=== PATIENT | female | born 1945 | race Caucasian/White ===

== ENCOUNTER 2018-08-09 06:14 | Day surgery (SDC) | payer MEDICARE, OTHER ==
[~2018-08-09] VITALS: Ht 157.5 cm; Wt 100.9 kg
[~2018-08-09 06:14] MED LIST: AMLO5 PO; ASPI81CH PO; ATEN50 PO; ATOR20 PO; Benazepril HCl10 MG PO; CHOL10002 PO; DICL25ER PO; Hydrochlorothia25 MG PO; LEVSOD150 PO; LORA.5 PO; MELATIN3 MG PO; METF500C PO; Multiple Vitam1 EAC1 PO; SERT50 PO; TRAM50 PO
== END 2018-08-09 08:30 | disposition home or self-care (01) ==
LOC: ORSCSDS 06:14
PROVIDERS: Orthopaedic Surgery
PROC: 01N50ZZ Release Median Nerve, Open Approach (ICD-10-PCS; principal; 2018-08-09 07:30)
DX: G56.01 Carpal tunnel syndrome, right upper limb (principal); I10 Essential (primary) hypertension; E11.9 Type 2 diabetes mellitus without complications; Z87.891 Personal history of nicotine dependence; E66.01 Morbid (severe) obesity due to excess calories; Z68.41 Body mass index [BMI] 40.0-44.9, adult; Z79.899 Other long term (current) drug therapy
CPT/HCPCS: 82947; J0171; J2250; J3010; J7120

== ENCOUNTER → 2019-09-10 | Outpatient (CLI) | payer MEDICARE, OTHER | END | disposition home or self-care (01) | LOC: LAB SHORT 18:25 → LAB 18:25 → LAB FUT 09-10 11:20 | DX: R30.0 Dysuria (principal); R30.9 Painful micturition, unspecified | CPT/HCPCS: 87077; 87086; 87186 ==

== ENCOUNTER → 2020-05-27 | Outpatient (CLI) | payer MEDICARE, OTHER ==
[2020-05-27 14:31] LABS: Campylobacter Sp Not Detected (NOT DETECT); Plesiomonas Shigelloides Not Detected (NOT DETECT); Salmonella Sp Not Detected (NOT DETECT); Yersinia Enterocolitica Not Detected (NOT DETECT)
[2020-05-27 14:32] LABS: Adenovirus F 40/41 Not Detected (NOT DETECT); Astrovirus Not Detected (NOT DETECT); Cryptosporidium Not Detected (NOT DETECT); Cyclospora Cayetanensis Not Detected (NOT DETECT); E. Coli O157 Not Detected (NOT DETECT); Entamoeba Histolytica Not Detected (NOT DETECT); Enteroaggregative E. coli-EAEC Not Detected (NOT DETECT); Enteropathogenic E. coli-EPEC Not Detected (NOT DETECT); Enterotoxigenic E. coli-ETEC Not Detected (NOT DETECT); Giardia Lamblia Not Detected (NOT DETECT); Norovirus GI/GII Not Detected (NOT DETECT); Rotavirus A Not Detected (NOT DETECT); Sapovirus Not Detected (NOT DETECT); Shiga Toxin-prod E. coli-STEC Not Detected (NOT DETECT); Shigella/Enteroin E. coli-EIEC Not Detected (NOT DETECT); Vibrio Cholerae Not Detected (NOT DETECT); Vibrio Sp Not Detected (NOT DETECT)
== END ==
LOC: LAB UCHC 06:30 → LAB SHORT 06:30
PROVIDERS: Internal Medicine
DX: R19.7 Diarrhea, unspecified (principal)
CPT/HCPCS: 0097U

== ENCOUNTER 2020-12-07 13:43 | Emergency (ER) | payer MEDICARE, OTHER ==
[~2020-12-07] VITALS: Ht 160 cm; Wt 99.8 kg
[2020-12-07] MEDS ORDERED: Ativan0.5 MG PO (14:17)
[2020-12-07 14:34] LABS: BASOPHILS ABSOLUTE AUTO 0.04 K/mm3 (0.00-0.23); BASOPHILS PERCENT AUTO 1 % (0-2); EOSINOPHILS ABSOLUTE AUTO 0.07 K/mm3 (0.00-0.68); EOSINOPHILS PERCENT AUTO 1 % (0-6); Hematocrit 45.9 % (33.0-51.0); Hemoglobin 14.9 g/dL (11.5-16.0); IMMATURE GRAN ABSOLUTE AUTO 0.02 K/mm3 (0.00-0.10); IMMATURE GRAN PERCENT AUTO 0 % (0-1); LYMPHOCYTES ABSOLUTE AUTO 2.46 K/mm3 (0.84-5.20); LYMPHOCYTES PERCENT AUTO 29 % (21-46); MONOCYTES ABSOLUTE AUTO 0.63 K/mm3 (0.16-1.47); MONOCYTES PERCENT AUTO 8 % (4-13); Mean Corpuscular HGB 29.4 pg (26.0-34.0); Mean Corpuscular HGB Conc 32.5 g/dL (31.5-36.5); Mean Corpuscular Volume 91 fL (80-100); NEUTROPHILS ABSOLUTE AUTO 5.21 K/mm3 (1.96-9.15); NEUTROPHILS PERCENT AUTO 62 % (41-73); Platelet Count 219 K/mm3 (150-400); RDW Standard Deviation 42.9 fL (35.1-46.3); Red Blood Cell Count 5.07 M/mm3 (3.80-5.20); White Blood Cell Count 8.43 K/mm3 (4.00-11.30)
[2020-12-07 15:04] LABS: Alanine Aminotransfer (ALT/SGP 26 U/L (12-78); Albumin, Blood 3.7 g/dL (3.4-5.0); Alk Phos 88 U/L (50-136); Anion Gap 8 mmol/L (6-16); Aspartate Aminotrans (AST/SGOT 16 U/L (12-37); Bilirubin, Total 0.7 mg/dL (0.1-1.0); Blood Urea Nitrogen 12 mg/dL (8-24); Bun/Creatinine Ratio 18.7 (12.0-20.0); CO2, Blood 25 mmol/L (21-32); Calcium, Blood 8.9 mg/dL (8.5-10.1); Chloride, Blood 103 mmol/L (98-108); Creatinine, Blood 0.64 mg/dL (0.40-1.00); Globulin, Blood 3.6 g/dL (2.2-4.0); Glomerular Filtration Rate >60 (60-); Glucose, Blood 125 mg/dL (70-99); Potassium, Blood 3.6 mmol/L (3.5-5.5); Sodium, Blood 136 mmol/L (136-145); Total Protein, Blood 7.3 g/dL (6.4-8.2); Troponin I <0.015 ng/mL (0.000-0.040)
[2021-03-03] MEDS ORDERED: ATEN50 PO (11:34)
[2021-03-03] MEDS ORDERED: ATOR20 PO (11:34)
[2021-03-03] MEDS ORDERED: Aspirin EC81 MG PO (11:34)
[2021-03-03] MEDS ORDERED: VITAMIN D325 MC3 PO (11:35)
[2021-03-03] MEDS ORDERED: EUTHYROX175 MCG PO (11:35)
[2021-03-03] MEDS ORDERED: Diclofenac Sodi50 MG PO (11:35)
[2021-03-03] MEDS ORDERED: BENAZEPRIL HCL10 MG PO (11:35)
[2021-03-03] MEDS ORDERED: LORA.5 PO (11:36)
[2021-03-03] MEDS ORDERED: MELA3 PO (11:36)
[2021-03-03] MEDS ORDERED: NASONEX17 G1 (11:36)
[2021-03-03] MEDS ORDERED: MULTIPLE VITAM1 EACH PO (11:37)
[2021-03-03] MEDS ORDERED: TRAM50 PO (11:37)
[2021-03-03] MEDS ORDERED: TURMERIC500 M2 PO (11:37)
[2021-03-03] MEDS ORDERED: SERT50 PO (11:37)
== END 2020-12-07 17:02 | disposition home or self-care (01) ==
LOC: ER 13:43
PROVIDERS: Emergency Medicine
DX: R00.2 Palpitations (principal); R11.0 Nausea; Z79.899 Other long term (current) drug therapy
CPT/HCPCS: 36415; 71045; 80053; 84484; 85025; 93005; 93010; 99285-25; A9270

== ENCOUNTER 2021-03-11 06:55 | Day surgery (SDC) | payer MEDICARE, OTHER ==
[~2021-03-11] VITALS: Ht 160 cm; Wt 96.0 kg
[~2021-03-11 06:55] MED LIST changes: +Aspirin EC81 MG PO; +Ativan0.5 MG PO; +BENAZEPRIL HCL10 MG PO; +Diclofenac Sodi50 MG PO; +EUTHYROX175 MCG PO; +MELA3 PO; +MULTIPLE VITAM1 EACH PO; +NASONEX17 G1; +TURMERIC500 M2 PO; +VITAMIN D325 MC3 PO
== END 2021-03-11 09:15 | disposition home or self-care (01) ==
LOC: ORSCSDS 06:55
PROVIDERS: Internal Medicine Gastroenterology
PROC: 0DBL8ZX Excision of Transverse Colon, Via Natural or Artificial Opening Endoscopic, Diagnostic (ICD-10-PCS; principal; 2021-03-11 08:15)
DX: R19.5 Other fecal abnormalities (principal); Z86.010 Personal history of colon polyps; D12.3 Benign neoplasm of transverse colon; Z87.891 Personal history of nicotine dependence; Z79.82 Long term (current) use of aspirin; Z79.899 Other long term (current) drug therapy; K64.4 Residual hemorrhoidal skin tags; K57.30 Diverticulosis of large intestine without perforation or abscess without bleeding
CPT/HCPCS: 82947; 88305; J2704; J7120

== ENCOUNTER 2021-08-10 11:04 | Day surgery (SDC) | payer MEDICARE, OTHER ==
[~2021-08-10] VITALS: Ht 160 cm; Wt 99.0 kg
[~2021-08-10 11:04] MED LIST changes: +HYDCHL25 PO
--- NOTE | 2021-08-10 12:28 | NUR ---
Ambulatory in Day Surgery History, Chart, Medications and Allergies reviewed before start of procedure.Lungs clear T/O to Auscultation. Patient confirms NPO status and agrees with scheduled surgery.
--- NOTE | 2021-08-10 13:09 | NUR ---
08/10/21 1309 Anayeli Norris History, Chart, Medications and Allergies reviewed before start of procedure. Patient confirms NPO status and agrees with scheduled surgery. 3-LEAD EKG REVIEWED WITH PHYSICIAN PRIOR TO START OF PROCEDURE. MONITOR INTACT WITH CONTINUOUS PULSE OXIMETRY AND INTERMITTENT BP. PATIENT DETERMINED TO BE ASA APPROPRIATE FOR PROPOFOL SEDATION PRIOR TO START OF PROCEDURE BY DR. RATLIFF
--- NOTE | 2021-08-10 13:37 | NUR ---
Patient up to Ambulate independently. Gait steady. History, Chart, Medications and Allergies reviewed before start of procedure.Lungs clear T/O to Auscultation. Patient States Post-Procedure ride home has been arranged. Discharged via wheelchair to private car for ride home. ALL BELONINGS RETURNED TO PATIENT.
== END 2021-08-10 23:01 | disposition home or self-care (01) ==
LOC: ORSCMMR 11:04 → ORD 12:45 → ORSCMMR 12:45
PROVIDERS: Internal Medicine Gastroenterology
PROC: 0DB68ZX Excision of Stomach, Via Natural or Artificial Opening Endoscopic, Diagnostic (ICD-10-PCS; principal; 2021-08-10 12:45)
DX: D50.9 Iron deficiency anemia, unspecified (principal); K29.70 Gastritis, unspecified, without bleeding; K44.9 Diaphragmatic hernia without obstruction or gangrene; Z79.82 Long term (current) use of aspirin; Z79.899 Other long term (current) drug therapy
CPT/HCPCS: 88305; 88341; 88342; J2704; J7120

== ENCOUNTER → 2022-01-04 | Outpatient (CLI) | payer MEDICARE, OTHER ==
[2022-01-04 22:23] LABS: Alanine Aminotransfer (ALT/SGP 24 U/L (12-78); Albumin, Blood 3.9 g/dL (3.4-5.0); Albumin/Globulin Ratio 1.4 (0.8-1.8); Alk Phos 101 U/L (50-136); Anion Gap 4 mmol/L (6-16); Aspartate Aminotrans (AST/SGOT 17 U/L (12-37); Bilirubin, Total 0.7 mg/dL (0.1-1.0); Blood Urea Nitrogen 10 mg/dL (8-24); Bun/Creatinine Ratio 15.9 (12.0-20.0); CO2, Blood 27 mmol/L (21-32); Calcium, Blood 9.1 mg/dL (8.5-10.1); Chloride, Blood 106 mmol/L (98-108); Creatinine, Blood 0.63 mg/dL (0.40-1.00); Globulin, Blood 2.8 g/dL (2.2-4.0); Glomerular Filtration Rate >60 (60-); Glucose, Blood 119 mg/dL (70-99); Potassium, Blood 3.9 mmol/L (3.5-5.5); Sodium, Blood 137 mmol/L (136-145); Total Protein, Blood 6.7 g/dL (6.4-8.2)
== END | disposition home or self-care (01) ==
LOC: LAB SHORT 12:53
PROVIDERS: Internal Medicine
DX: I10 Essential (primary) hypertension (principal); E03.9 Hypothyroidism, unspecified; R73.03 Prediabetes
CPT/HCPCS: 80053; 83036; 84443

== ENCOUNTER 2022-06-01 10:56 | Day surgery (SDC) | payer MEDICARE, OTHER ==
[~2022-06-01] VITALS: Ht 160 cm; Wt 88.3 kg
[~2022-06-01 10:56] MED LIST changes: -NASONEX17 G1; +[UNRECOGNIZED DRUG - OTHER]
[2022-06-01] MEDS ORDERED: DICL75ER (11:48)
--- NOTE | 2022-06-01 12:04 | NUR ---
History, Chart, Medications and Allergies reviewed before start of procedure. Lungs clear T/O to Auscultation. PT TO UNIT VIA W/C. ABLE TO STAND AND GET WEIGHT. FAMILY TO BEDSIDE.
--- NOTE | 2022-06-01 18:02 | NUR ---
PATIENT ARRIVED TO UNIT VIA BED. VSS ON RA. PATIENT HAS FULL SENSATION TO BLE, WIGGLES ALL TOES, MOVES LEGS VERY WELL. GAUZE AND MANDI WRAP TO LEFT KNEE, POLAR PACK IN PLACE. LUNGS CLEAR. DENIES PAIN AT THIS TIME. TOLERATING WATER AND JELLO AT THIS TIME. ORIENTED TO ROOM AND CALL LIGHT.
[2022-06-02 03:58] LABS: BASOPHILS ABSOLUTE AUTO 0.01 K/mm3 (0.00-0.23); BASOPHILS PERCENT AUTO 0 % (0-2); EOSINOPHILS PERCENT AUTO 0 % (0-6); Hemoglobin 12.6 g/dL (11.5-16.0); IMMATURE GRAN ABSOLUTE AUTO 0.04 K/mm3 (0.00-0.10); IMMATURE GRAN PERCENT AUTO 0 % (0-1); LYMPHOCYTES ABSOLUTE AUTO 1.19 K/mm3 (0.84-5.20); LYMPHOCYTES PERCENT AUTO 9 % (21-46); MONOCYTES ABSOLUTE AUTO 1.21 K/mm3 (0.16-1.47); MONOCYTES PERCENT AUTO 9 % (4-13); Mean Corpuscular HGB Conc 32.3 g/dL (31.5-36.5); Mean Corpuscular Volume 90 fL (80-100); Mean Platelet Volume 8.8 fL (9.1-12.4); NEUTROPHILS ABSOLUTE AUTO 10.79 K/mm3 (1.96-9.15); NEUTROPHILS PERCENT AUTO 82 % (41-73); Platelet Count 233 K/mm3 (150-400); RDW Coefficient Variation 12.7 % (11.7-14.2); Red Blood Cell Count 4.34 M/mm3 (3.80-5.20); White Blood Cell Count 13.24 K/mm3 (4.00-11.30)
[2022-06-02 04:24] LABS: Bun/Creatinine Ratio 17.7 (12.0-20.0); Calcium, Blood 8.5 mg/dL (8.5-10.1); Creatinine, Blood 0.51 mg/dL (0.40-1.00); Magnesium, Blood 1.8 mg/dL (1.6-2.4); Potassium, Blood 3.5 mmol/L (3.5-5.5)
--- NOTE | 2022-06-02 04:46 | NUR ---
SHIFT SUMMARY PT A&OX4, PLESANT AND COOPERATIVE. TOLERAING PO INTAKE WITHOUT ANY N/V. PT BECAME MORE PAINFUL SPINAL WORE OFF, MEDICATED PER EMAR. AMBULATING TO BATHROOM WITH SBA AND FWW, VOIDING WELL. DRESSING C/D/I. CALL LIGHT WITHIN REACH.
--- NOTE | 2022-06-02 12:56 | NUR ---
DISCHARGE SUMMARY PT A&OX4, VSS/RA, ROMA PO, VOIDING, AMB SBA FWW, PAIN TREATED WITH OXY 5 MG PRN, UP TO CHAIR, IV DC'D. DC INS PROVIDED. PT REP UNDERSTANDING THOSE INSTRUCTIONS INCLUDING DRESSING CHANGES, SHORT FREQ AMB W/FWW AT ALL TIMES, WITH REST PERIODS POLAR JEFFREY/ELEVATED, MEL HOSE, ASA BID, BACTRIM BID, OK TO SHOWER, PAIN MANAGEMENT EDU. LEFT FLOOR VIA WC WITH FILTER TENDER, TO GO HOME WITH AND SON/ADVERTISING OPERATIONS MANAGER, WITH ALL PERSONAL POSSESSIONS/DC PACKET/POLAR JEFFREY/ AQUACEL DRESSINGS 2 MEDIUM AND 2 SMALL. AQUACEL APPLIED BY SURGEON THIS AM CDI.
== END 2022-06-02 12:27 | disposition home or self-care (01) ==
LOC: ORSCMMR 10:56 → ORD 14:00 → SURS 17:56 → ORSCMMR 06-02 12:27
PROVIDERS: Orthopaedic Surgery
PROC: 0SRD0J9 Replacement of Left Knee Joint with Synthetic Substitute, Cemented, Open Approach (ICD-10-PCS; principal; 2022-06-01 14:00)
PROC: 8E0YXBZ Computer Assisted Procedure of Lower Extremity (ICD-10-PCS; principal; 2022-06-01 14:00)
DX: M17.0 Bilateral primary osteoarthritis of knee (principal); E11.9 Type 2 diabetes mellitus without complications; E66.9 Obesity, unspecified; Z68.36 Body mass index [BMI] 36.0-36.9, adult; I10 Essential (primary) hypertension; F41.8 Other specified anxiety disorders; M35.3 Polymyalgia rheumatica; Z79.82 Long term (current) use of aspirin; Z79.899 Other long term (current) drug therapy
CPT/HCPCS: 36415; 73560-LT; 80048; 82947; 83735; 85025; 97110; 97116; 97161; 97530; A9270; C1713; C1776; J0171; J0690; J0735; J1100; J1170; J1885; J2250; J2370; J2405; J2704; J2795; J3010; J7120

== ENCOUNTER 2022-10-26 10:37 | Day surgery (SDC) | payer MEDICARE, OTHER ==
[~2022-10-26] VITALS: Ht 160 cm; Wt 87.9 kg
[~2022-10-26 10:37] MED LIST changes: +DICL75ER PO
--- NOTE | 2022-10-26 15:05 | NUR ---
10/26/22 1505 Gissel Mejia PATIENT RECEIVED VANCO 1GM PRIOR TO ARRIVING IN THE OR.
--- NOTE | 2022-10-26 18:15 | NUR ---
PATIENT ARRIVED TO ROOM IN BED. MANDI WRAP & POLAR PACK TO RIGHT KNEE, C/D/I. VSS ON ROOM AIR. LUNGS CLEAR. HAD SPINAL ANESTHESIA, NO SENSATION TO BLE AT THIS TIME. PATIENT ALERT, SIPPING ON WATER AT THIS TIME. DENIES N/V. DENIES PAIN. ORIENTED TO ROOM & CALL LIGHT, IN REACH. WILL REPORT TO ONCOMING RN AT 1900.
[2022-10-27 03:48] LABS: BASOPHILS ABSOLUTE AUTO 0.01 K/mm3 (0.00-0.23); BASOPHILS PERCENT AUTO 0 % (0-2); EOSINOPHILS PERCENT AUTO 0 % (0-6); Hematocrit 38.2 % (33.0-51.0); Hemoglobin 12.7 g/dL (11.5-16.0); IMMATURE GRAN ABSOLUTE AUTO 0.05 K/mm3 (0.00-0.10); IMMATURE GRAN PERCENT AUTO 0 % (0-1); LYMPHOCYTES ABSOLUTE AUTO 1.19 K/mm3 (0.84-5.20); LYMPHOCYTES PERCENT AUTO 9 % (21-46); MONOCYTES ABSOLUTE AUTO 1.04 K/mm3 (0.16-1.47); MONOCYTES PERCENT AUTO 8 % (4-13); Mean Corpuscular HGB 29.5 pg (26.0-34.0); Mean Corpuscular HGB Conc 33.2 g/dL (31.5-36.5); Mean Corpuscular Volume 89 fL (80-100); Mean Platelet Volume 8.9 fL (9.1-12.4); NEUTROPHILS ABSOLUTE AUTO 10.46 K/mm3 (1.96-9.15); NEUTROPHILS PERCENT AUTO 82 % (41-73); Platelet Count 217 K/mm3 (150-400); RDW Coefficient Variation 13.2 % (11.7-14.2); RDW Standard Deviation 43.1 fL (35.1-46.3); White Blood Cell Count 12.75 K/mm3 (4.00-11.30)
--- NOTE | 2022-10-27 04:19 | NUR ---
POD1 RIGHT TKA. SENSATION AND CIRCULATION REMAIN INTACT IN RLE. DRESSING REMAINS C/D/I. VSS. PT DID NOT SLEEP MUCH LAST NIGHT. AMBULATED TO THE BATHROOM MULTIPLE TIMES TO VOID. TOLLERATED PO INTAKE W/O N/V. PLAN FOR PT TO WORK WITH PT BEFORE D/C HOME TODAY. THE PATIENT IS CURRENTLY RESTING IN BED, IN NO DISTRESS, CALL LIGHT IN REACH.
[2022-10-27 04:27] LABS: Bun/Creatinine Ratio 21.4 (12.0-20.0); Calcium, Blood 8.3 mg/dL (8.5-10.1); Creatinine, Blood 0.56 mg/dL (0.40-1.00); Potassium, Blood 3.7 mmol/L (3.5-5.5)
--- NOTE | 2022-10-27 09:30 | NUR ---
DISCHARGE PATIENT CLEARED THERAPY WELL. AQUACEL TO RIGHT KNEE, C/D/I. PAIN MANAGED WELL PER EMAR. EATING, DRINKING, & VOIDING WELL. DISCUSSED DISCHARGE INSTRUCTIONS AND INCISION CARE. SENT INSTRUCTIONS, DRESSINGS, & POLAR PACK WITH PATIENT. AWAITING RIDE.
[2022-10-27] MEDS ORDERED: OXYC5 PO (09:57)
[2022-10-27] MEDS ORDERED: PROM25 PO (09:58)
[2022-10-27] MEDS ORDERED: SULTRIDS PO (09:58)
--- NOTE | 2022-10-27 11:45 | NUR ---
ESCORTED OUT VIA W/C. BELONGINGS AND DC INSTRUCTIONS SENT OUT WITH FAMILY MEMBER.
== END 2022-10-27 11:37 | disposition home or self-care (01) ==
LOC: ORSCMMR 10:37 → ORD 14:00 → ORSCMMR 14:00 → SURS 18:06 → ORSCMMR 10-27 11:37
PROVIDERS: Orthopaedic Surgery
PROC: 0SRC0J9 Replacement of Right Knee Joint with Synthetic Substitute, Cemented, Open Approach (ICD-10-PCS; principal; 2022-10-26 14:00)
DX: M17.11 Unilateral primary osteoarthritis, right knee (principal); I10 Essential (primary) hypertension; E03.9 Hypothyroidism, unspecified; E78.00 Pure hypercholesterolemia, unspecified; Z79.899 Other long term (current) drug therapy; Z79.82 Long term (current) use of aspirin; E66.9 Obesity, unspecified; Z68.34 Body mass index [BMI] 34.0-34.9, adult
CPT/HCPCS: 36415; 73560-RT; 80048; 83735; 85025; 97110; 97116; 97161; 97530; A9270; C1713; C1776; J0171; J0690; J0735; J1100; J1885; J2250; J2405; J2704; J2795; J3010; J3370; J7120

== ENCOUNTER → 2024-07-31 | Outpatient (CLI) | payer MEDICARE, OTHER ==
[~2024-07-31] MED LIST changes: +OXYC5 PO; +PROM25 PO; +SULTRIDS PO
[2024-07-31 20:18] LABS: Free Thyroxine 1.14 ng/dL (0.70-1.60)
[2024-07-31 20:20] LABS: Thyroid Stimulating Hormone 2.25 uIU/mL (0.360-4.800)
== END | disposition home or self-care (01) ==
LOC: LAB SHORT 17:46 → LAB 17:46
PROVIDERS: Internal Medicine
DX: E03.9 Hypothyroidism, unspecified (principal)
CPT/HCPCS: 84439; 84443

== ENCOUNTER → 2025-01-27 | Outpatient (CLI) | payer MEDICARE, OTHER ==
[2025-01-27 15:06] LABS: BASOPHILS ABSOLUTE AUTO 0.03 K/mm3 (0.00-0.23); BASOPHILS PERCENT AUTO 1 % (0-2); EOSINOPHILS ABSOLUTE AUTO 0.08 K/mm3 (0.00-0.68); EOSINOPHILS PERCENT AUTO 1 % (0-6); Hematocrit 47.7 % (33.0-51.0); Hemoglobin 15.3 g/dL (11.5-16.0); IMMATURE GRAN ABSOLUTE AUTO 0.02 K/mm3 (0.00-0.10); IMMATURE GRAN PERCENT AUTO 0 % (0-1); LYMPHOCYTES PERCENT AUTO 23 % (21-46); MONOCYTES PERCENT AUTO 8 % (4-13); Mean Corpuscular HGB 29.2 pg (26.0-34.0); Mean Corpuscular HGB Conc 32.1 g/dL (31.5-36.5); Mean Corpuscular Volume 91 fL (80-100); Mean Platelet Volume 9.3 fL (9.1-12.4); NEUTROPHILS ABSOLUTE AUTO 4.44 K/mm3 (1.96-9.15); NEUTROPHILS PERCENT AUTO 68 % (41-73); Platelet Count 227 K/mm3 (150-400); RDW Coefficient Variation 12.7 % (11.7-14.2); RDW Standard Deviation 42.2 fL (35.1-46.3); Red Blood Cell Count 5.24 M/mm3 (3.80-5.20); White Blood Cell Count 6.57 K/mm3 (4.00-11.30)
[2025-01-27 15:25] LABS: Alanine Aminotransfer (ALT/SGP 33 U/L (12-78); Albumin, Blood 3.8 g/dL (3.4-5.0); Albumin/Globulin Ratio 1.2 (0.8-1.8); Alk Phos 105 U/L (50-136); Anion Gap 10 mmol/L (3-11); Aspartate Aminotrans (AST/SGOT 29 U/L (12-37); Bilirubin, Total 0.8 mg/dL (0.1-1.0); Blood Urea Nitrogen 10 mg/dL (8-24); Bun/Creatinine Ratio 18.3 (12.0-20.0); CO2, Blood 27 mmol/L (21-32); Calcium, Blood 8.7 mg/dL (8.5-10.1); Chloride, Blood 102 mmol/L (98-108); Cholesterol 180 mg/dL (50-200); Creatinine, Blood 0.55 mg/dL (0.40-1.00); Globulin, Blood 3.1 g/dL (2.2-4.0); Glomerular Filtration Rate 94 (60-); Glucose, Blood 129 mg/dL (70-99); HDL Cholesterol 60 mg/dL (>39); LDL/HDL RATIO 1.5; Low Density Lipoprotein Chol 92 mg/dL (0-110); Sodium, Blood 135 mmol/L (136-145); Total Protein, Blood 6.9 g/dL (6.4-8.2); Triglycerides 138 mg/dL (30-160); Very Low Density Lipoprot Chol 27 mg/dL (6-32)
[2025-01-27 15:30] LABS: Thyroid Stimulating Hormone 0.454 uIU/mL (0.360-4.800)
== END ==
LOC: LAB SHORT 13:52 → LAB 13:52
PROVIDERS: Internal Medicine
DX: E78.5 Hyperlipidemia, unspecified (principal); E03.9 Hypothyroidism, unspecified; I10 Essential (primary) hypertension
CPT/HCPCS: 80053; 80061; 84443; 85025